=== PATIENT | female | born 1965 | race Caucasian/White ===

== ENCOUNTER 2021-02-14 10:17 | Emergency (ER) | payer BC ==
[2021-02-15 13:07] LABS: SARS-CoV-2 NAA Not Detected (Not Detected)
== END 2021-02-14 10:46 | disposition home or self-care (01) ==
LOC: JVIRT 10:17
DX: R09.81 Nasal congestion (principal); Z20.822 Contact with and (suspected) exposure to COVID-19
CPT/HCPCS: C9803; G2251-GT; U0003; U0005

== ENCOUNTER 2021-02-19 13:03 | Emergency (ER) | payer BC ==
[2021-02-20 14:07] LABS: SARS-CoV-2 NAA Detected (Not Detected)
== END 2021-02-19 13:19 | disposition home or self-care (01) ==
LOC: JVIRT 13:03
DX: R05 Cough (principal); R09.81 Nasal congestion; Z11.52 Encounter for screening for COVID-19
CPT/HCPCS: C9803; Q3014-GT; U0003; U0005